=== PATIENT | female | born 1995 | race Caucasian/White ===

== ENCOUNTER 2020-10-07 17:25 | Emergency (ER) | payer SELFPAY ==
[~2020-10-07] VITALS: Ht 160 cm; Wt 49.8 kg
[2020-10-07 17:37] VITALS: BP 131/71
--- NOTE | 2020-10-07 17:48 | NUR ---
AFTER TRIAGING PT, STATES SHE CHANGED HER MIND ABOUT BEING SEEN. PT EDUCATED AND ENCOURAGED TO STAY. STATES SHE WILL RETURN IF SYMPTOMS WORSEN.
== END 2020-10-07 18:03 | disposition left against medical advice (07) ==
LOC: ED 17:55
DX: R00.2 Palpitations (principal); Z53.21 Procedure and treatment not carried out due to patient leaving prior to being seen by health care provider
CPT/HCPCS: 93005